=== PATIENT | female | born 1980 | race Asian ===

== ENCOUNTER 2025-02-23 11:24 | Emergency (ER) | payer OTHER ==
[~2025-02-23] VITALS: Ht 162.6 cm; Wt 63.6 kg
[2025-02-23 11:33] VITALS: TEMP 98.4
[2025-02-23 11:58] LABS: COVID AG,FIA SOURCE NASAL SWAB
[2025-02-23 12:22] LABS: SARS-COV2 (COVID) ANTIGEN,FIA Negative (Negative)
[2025-02-23 12:27] LABS: INFLUENZA TYPE A NEGATIVE FOR TYPE A (NEGATIVE); INFLUENZA TYPE B NEGATIVE FOR TYPE B (NEGATIVE)
[2025-02-23] MEDS: GuaiFENesin/D-METHORPHAN [SUGAR-FREE] 200-20MG/10 ML SYRUP UDCUP PO ONE (12:32)
[2025-02-23] MEDS: BENZONATATE 100 MG CAPSULE PO ONE (12:32)
[2025-02-23] MEDS: ACETAMINOPHEN 500 MG TABLET PO ONE (12:33)
[2025-02-23 13:30] VITALS: BP 123/86; PULSE 89; RESP 16; O2SAT 100
[2025-02-23] MEDS ORDERED: PSEU-191 PO (13:33)
[2025-02-23] MEDS ORDERED: GUAI1TBM19 PO (13:33)
[2025-02-23] MEDS ORDERED: ACET-66 PO (13:33)
[2025-02-23] MEDS ORDERED: BENZ-227 PO (13:33)
[2025-02-23] MEDS ORDERED: DIPH50CA37 PO (13:33)
== END 2025-02-23 13:50 | disposition home or self-care (01) ==
LOC: EMS 11:24
DX: J06.9 Acute upper respiratory infection, unspecified (principal); Z20.822 Contact with and (suspected) exposure to COVID-19; Z98.890 Other specified postprocedural states
CPT/HCPCS: 87804; 99283